=== PATIENT | male | born 1990 | race Caucasian/White ===

== ENCOUNTER 2017-04-10 10:29 | Emergency (ER) | payer SELFPAY ==
[~2017-04-10] VITALS: Ht 180.3 cm; Wt 110.3 kg
[2017-04-10] MEDS ORDERED: ONDANSETRON ODT 4 MG ONE (11:51)
[2017-04-10] MEDS ORDERED: ONDANSETRON ODT 4 MG PO ONE (12:00)
[2017-04-10 13:45] VITALS: BP 101/58
== END 2017-04-10 13:47 | disposition home or self-care (01) ==
LOC: ED 11:28
DX: S02.119A Unspecified fracture of occiput, initial encounter for closed fracture (principal); S16.1XXA Strain of muscle, fascia and tendon at neck level, initial encounter; S40.012A Contusion of left shoulder, initial encounter; W19.XXXA Unspecified fall, initial encounter; Y93.89 Activity, other specified; Y99.8 Other external cause status; Y92.009 Unspecified place in unspecified non-institutional (private) residence as the place of occurrence of the external cause
CPT/HCPCS: 70450; 72125; 73030; 99284; Q0162

== ENCOUNTER 2017-06-23 10:00 | Emergency (ER) | payer SELFPAY ==
[~2017-06-23] VITALS: Ht 180.3 cm; Wt 115.4 kg
[2017-06-23 10:03] VITALS: BP 131/82
== END 2017-06-23 11:10 | disposition home or self-care (01) ==
LOC: ED 10:55
DX: H65.01 Acute serous otitis media, right ear (principal); K08.89 Other specified disorders of teeth and supporting structures
CPT/HCPCS: 99283

== ENCOUNTER 2018-05-10 16:12 | Emergency (ER) | payer OTHER ==
[~2018-05-10] VITALS: Ht 180.3 cm; Wt 110.4 kg
[2018-05-10 16:14] VITALS: BP 134/82
== END 2018-05-10 17:21 ==
LOC: ED 17:00
DX: S43.51XA Sprain of right acromioclavicular joint, initial encounter (principal); W19.XXXA Unspecified fall, initial encounter; Y93.89 Activity, other specified; Y92.89 Other specified places as the place of occurrence of the external cause; Y99.8 Other external cause status
CPT/HCPCS: 99284